=== PATIENT | female | born 1960 ===

== ENCOUNTER 2018-05-24 08:48 | Day surgery (SDC) | payer MEDICARE, MEDICAID ==
[2017-12-27 15:34] VITALS: BMI 47.0
--- NOTE | 2018-05-24 11:24 | CP.SDSHP ---
Same Day Surgery H & P - History Proposed Procedure: colonoscopy Pre-Op Diagnosis: history of colon polyps - Previous Medical/Surgical History Cardiac: Hypertension Endocrine/Metabolic: Diabetes, Obesity - Allergies Allergies: Allergies No Known Allergies Allergy (Verified 05/24/18 09:20) - Physical Exam General Appearance: NAD Vital Signs: Vital Signs 05/24/18 09:00 Temperature 97.2 F L Pulse Rate 71 Respiratory 19 Rate Blood Pressure 139/71 O2 Sat by Pulse 97 Oximetry Mental Status: Alert & Oriented x3 Neuro: WNL Heart: WNL Lungs: WNL GI: WNL - {Optional Preform as Required} Abdomen: WNL - Impression Pt. Evaluated Today:Candidate for Anesthesia & Procedure: Yes - Date & Time Date: 05/24/18 Time: 11:23 Short Stay Discharge - Short Stay Discharge Admitting Diagnosis/Reason for Visit: PERSONAL HISTORY OF COLONIC POLYPS Disposition: HOME/ ROUTINE Referrals: Zulay Oden MD [Primary Care Provider] -
[2018-05-24] MEDS ORDERED: Lactated Ringer's 500 ML IV ONE (11:29)
[2018-05-24] MEDS ORDERED: Lactated Ringer's 500 ML IV SCH (11:30)
[2018-05-24] MEDS ORDERED: Propofol 10 mg/ml Inj (20 ML) ONE (11:32)
[2018-05-24] MEDS ORDERED: Lidocaine Hydrochloride 5 ML INJ ONE (11:41)
[2018-05-24 12:04] VITALS: TEMP 97.6
[2018-05-24 12:07] VITALS: O2SAT 97
[2018-05-24 13:13] VITALS: PULSE 59
[2018-05-24 13:24] VITALS: BP 113/57; RESP 22
== END 2018-05-24 13:15 | disposition home or self-care (01) ==
LOC: C.ENDO 08:48
PROVIDERS: ATTEND Internal Medicine Gastroenterology
DX: Z86.010 Personal history of colon polyps (principal); K64.8 Other hemorrhoids
CPT/HCPCS: 45378; 82948; J2704; J7120